=== PATIENT | female | born 1975 | race Caucasian/White ===

== ENCOUNTER → 2017-01-06 | Outpatient (REF) | payer OTHER ==
[~2017-01-06] MED LIST: ACET50TA PO; ADDE30CA PO; CIPR500T89 PO; DOCU10ELUD PO; FLAG500T PO; GLYBPOW PO; IBUP80TA PO; IRON325T3 PO; LABE300T PO; PERC5TAB PO; PRENTAB74 PO; TRAN200T PO; TYLE325T5 PO
== END ==
LOC: M SFHCLERA 21:57
PROVIDERS: ATTEND Physician Assistant
DX: N94.9 Unspecified condition associated with female genital organs and menstrual cycle (principal)

== ENCOUNTER → 2017-08-03 | Outpatient (REF) | payer OTHER ==
[~2017-08-03] MED LIST changes: +CIPR-249 PO; -CIPR500T89 PO
== END ==
LOC: M SFHCLERA 10:01
PROVIDERS: ATTEND Family Medicine
DX: Z53.8 Procedure and treatment not carried out for other reasons (principal)

== ENCOUNTER → 2017-09-25 | Outpatient (REF) | payer SELFPAY | LOC: M LAB REF 11:06 | PROVIDERS: ATTEND Dermatology | DX: D22.62 Melanocytic nevi of left upper limb, including shoulder (principal) ==

== ENCOUNTER → 2018-04-16 | Outpatient (REF) | payer BC | LOC: M SFHCLERA 11:02 | DX: L03.011 Cellulitis of right finger (principal) | CPT/HCPCS: 87186 ==

== ENCOUNTER → 2018-06-27 | Outpatient (REF) | payer BC ==
[2018-06-27 18:30] LABS: BASO # 0.1 10^3/uL (0.0-0.2); BASO % 0.5 % (0.0-1.0); EOS # 0.2 10^3/uL (0.0-0.50); HEMATOCRIT 42.8 % (36.0-47.0); HEMOGLOBIN 14.1 g/dl (12.0-15.5); IMMATURE GRANULOCYTE % 0.5 % (0-3.0); LYMPH # 1.3 10^3/uL (1.5-4.5); LYMPH % 10.9 % (24.0-44.0); MEAN CORPUSCULAR HEMOGLOBIN 26.8 pg (27.0-33.0); MEAN CORPUSCULAR HGB CONC 32.9 g/dl (32.0-36.5); MEAN CORPUSCULAR VOLUME 81.4 fl (80.0-96.0); MONO # 0.6 10^3/uL (0.0-0.8); MONO % 5.2 % (0.0-5.0); NEUTROPHILS # 9.7 10^3/uL (1.8-7.7); NEUTROPHILS % 80.9 % (36.0-66.0); PLATELET COUNT, AUTOMATED 307 10^3/uL (150-450); RED BLOOD COUNT 5.26 10^6/uL (4.00-5.40); RED CELL DISTRIBUTION WIDTH 13.5 % (11.5-14.5)
[2018-06-27 18:49] LABS: ESTIMATED AVERAGE GLUCOSE 103 MG/DL (60-110); HEMOGLOBIN A1c 5.2 %
[2018-06-27 18:50] LABS: MALB URINE SIEMENS 34.8 MG/L
[2018-06-27 19:01] LABS: ALBUMIN 4.3 GM/DL (3.2-5.2); ALBUMIN/GLOBULIN RATIO 1.23 (1.00-1.93); ALKALINE PHOSPHATASE 71 U/L (45-117); ALT/SGPT 24 U/L (12-78); ANION GAP 8 MEQ/L (8-16); AST/SGOT 12 U/L (7-37); BILIRUBIN,TOTAL 0.4 MG/DL (0.2-1.0); BLOOD UREA NITROGEN 12 MG/DL (7-18); CALCIUM LEVEL 9.6 MG/DL (8.5-10.1); CARBON DIOXIDE LEVEL 28 MEQ/L (21-32); CHLORIDE LEVEL 102 MEQ/L (98-107); CHOLESTEROL LEVEL 190 MG/DL (<200); CHOLESTEROL RISK RATIO 4.042 (<5); CREATININE FOR GFR 0.72 MG/DL (0.55-1.30); GLOMERULAR FILTRATION RATE > 60.0 (>58); GLUCOSE, FASTING 90 MG/DL (70-100); HDL CHOLESTEROL 47 MG/DL (>40); LDL CHOLESTEROL 92 MG/DL (<100); NON-HDL-C 143 MG/DL; POTASSIUM SERUM 4.3 MEQ/L (3.5-5.1); SODIUM LEVEL 138 MEQ/L (136-145); TOTAL PROTEIN 7.8 GM/DL (6.4-8.2); TRIGLYCERIDES LEVEL 255 MG/DL (<150)
[2018-06-27 22:36] LABS: MAU/CREAT RATIO 33.5 MCG/MG (0.0-30.0)
== END ==
LOC: M SFHCLERA 11:07
DX: I10 Essential (primary) hypertension (principal)
CPT/HCPCS: 84443

== ENCOUNTER → 2018-09-27 | Outpatient (REF) | payer BC ==
[2018-09-27 20:44] LABS: BASO # 0.1 10^3/uL (0.0-0.2); BASO % 0.6 % (0.0-1.0); EOS # 0.2 10^3/uL (0.0-0.50); EOS % 2.3 % (0.0-3.0); HEMATOCRIT 37.5 % (36.0-47.0); HEMOGLOBIN 12.4 g/dl (12.0-15.5); IMMATURE GRANULOCYTE % 0.5 % (0-3.0); LYMPH # 2.1 10^3/uL (1.5-4.5); LYMPH % 21.6 % (24.0-44.0); MEAN CORPUSCULAR HEMOGLOBIN 26.5 pg (27.0-33.0); MEAN CORPUSCULAR HGB CONC 33.1 g/dl (32.0-36.5); MEAN CORPUSCULAR VOLUME 80.1 fl (80.0-96.0); MONO # 0.5 10^3/uL (0.0-0.8); MONO % 5.1 % (0.0-5.0); NEUTROPHILS # 6.9 10^3/uL (1.8-7.7); NEUTROPHILS % 69.9 % (36.0-66.0); PLATELET COUNT, AUTOMATED 338 10^3/uL (150-450); RED BLOOD COUNT 4.68 10^6/uL (4.00-5.40); RED CELL DISTRIBUTION WIDTH 13.4 % (11.5-14.5); WHITE BLOOD COUNT 9.9 10^3/uL (4.0-10.0)
[2018-09-27 21:13] LABS: CREATININE, URINE 75.4 MG/DL; MALB URINE SIEMENS 29.9 MG/L; MAU/CREAT RATIO 39.6 MCG/MG (0.0-30.0)
== END ==
LOC: M SFHCLERA 17:16
DX: D72.829 Elevated white blood cell count, unspecified (principal)
CPT/HCPCS: 82043

== ENCOUNTER → 2018-11-02 | Outpatient (REF) | payer BC ==
[2018-11-06 15:26] LABS: HPV HYBRID CAPTURE II Negative (Negative)
== END ==
LOC: M SFHCLERA 14:50
PROVIDERS: ATTEND Family Medicine
DX: Z12.4 Encounter for screening for malignant neoplasm of cervix (principal); Z11.3 Encounter for screening for infections with a predominantly sexual mode of transmission
CPT/HCPCS: 87624; G0123

== ENCOUNTER → 2019-06-26 | Outpatient (REF) | payer BC ==
[~2019-06-26] MED LIST changes: -ACET50TA PO; -DOCU10ELUD PO; +DOCU5LIQ PO; +MAPA500T17 PO
[2019-06-26 17:18] LABS: BASO # 0.1 10^3/uL (0.0-0.2); BASO % 0.6 % (0.0-1.0); EOS # 0.2 10^3/uL (0.0-0.5); EOS % 2.4 % (0.0-3.0); HEMATOCRIT 37.1 % (36.0-47.0); HEMOGLOBIN 12.7 g/dl (12.0-15.5); LYMPH # 1.7 10^3/uL (1.5-5.0); MEAN CORPUSCULAR HEMOGLOBIN 27.5 pg (27.0-33.0); MEAN CORPUSCULAR HGB CONC 34.2 g/dl (32.0-36.5); MEAN CORPUSCULAR VOLUME 80.3 fl (80.0-96.0); MONO # 0.5 10^3/uL (0.0-0.8); MONO % 5.5 % (0.0-5.0); NEUTROPHILS # 6.5 10^3/uL (1.5-8.5); NEUTROPHILS % 71.8 % (36.0-66.0); PLATELET COUNT, AUTOMATED 311 10^3/uL (150-450); RED BLOOD COUNT 4.62 10^6/uL (4.00-5.40)
[2019-06-26 17:27] LABS: ALT/SGPT 22 U/L (12-78); BILIRUBIN,TOTAL 0.3 MG/DL (0.2-1.0); BLOOD UREA NITROGEN 11 MG/DL (7-18); CALCIUM LEVEL 9.2 MG/DL (8.5-10.1); CARBON DIOXIDE LEVEL 26 MEQ/L (21-32); CHLORIDE LEVEL 102 MEQ/L (98-107); CREATININE FOR GFR 0.79 MG/DL (0.55-1.30); GLOMERULAR FILTRATION RATE > 60.0 (>58); GLUCOSE, FASTING 104 MG/DL (70-100); POTASSIUM SERUM 3.5 MEQ/L (3.5-5.1); SODIUM LEVEL 139 MEQ/L (136-145)
[2019-06-26 18:31] LABS: HEMOGLOBIN A1c 5.6 %
== END ==
LOC: M SFHCLERA 11:31
PROVIDERS: ATTEND Family Medicine
DX: I10 Essential (primary) hypertension (principal)

== ENCOUNTER → 2019-07-26 | Outpatient (REF) | payer BC ==
[2019-07-29 16:12] LABS: CHLAMYDIA DNA AMPLIFICATION NEGATIVE (NEGATIVE); GC DNA AMPLIFICATION NEGATIVE (NEGATIVE)
== END ==
LOC: M SFHCLERA 17:55
PROVIDERS: ATTEND Nurse Practitioner Family
DX: N89.8 Other specified noninflammatory disorders of vagina (principal)

== ENCOUNTER 2019-08-19 18:54 | Emergency (ER) | payer BC ==
[~2019-08-19] VITALS: Ht 167.6 cm; Wt 90.9 kg
[2019-08-19] MEDS ORDERED: HYDR25TAB (19:01)
[2019-08-19] MEDS ORDERED: VALS1TAB66 (19:01)
[2019-08-19 21:18] LABS: BASO # 0.1 10^3/uL (0.0-0.2); BASO % 0.4 % (0.0-1.0); EOS # 0.3 10^3/uL (0.0-0.5); EOS % 2.2 % (0.0-3.0); HEMATOCRIT 38.1 % (36.0-47.0); HEMOGLOBIN 12.1 g/dl (12.0-15.5); LYMPH # 2.5 10^3/uL (1.5-5.0); LYMPH % 18.9 % (24.0-44.0); MEAN CORPUSCULAR HEMOGLOBIN 26.1 pg (27.0-33.0); MEAN CORPUSCULAR HGB CONC 31.8 g/dl (32.0-36.5); MEAN CORPUSCULAR VOLUME 82.3 fl (80.0-96.0); MONO # 0.8 10^3/uL (0.0-0.8); MONO % 6.2 % (0.0-5.0); NEUTROPHILS # 9.7 10^3/uL (1.5-8.5); NEUTROPHILS % 71.9 % (36.0-66.0); PLATELET COUNT, AUTOMATED 281 10^3/uL (150-450); RED BLOOD COUNT 4.63 10^6/uL (4.00-5.40); WHITE BLOOD COUNT 13.4 10^3/uL (4.0-10.0)
[2019-08-19] MEDS ORDERED: ISOVUE-370 76% 100ML VIAL (Q9967) As Ordered ONE (21:21)
[2019-08-19] MEDS ORDERED: MORPHINE 4 MG/ML 1ML VIAL/SYRINGE (J2270) IV ONE (21:30)
[2019-08-19] MEDS ORDERED: ONDANSETRON 4MG/2ML VIAL (J2405) IV ONE (21:30)
--- NOTE | 2019-08-19 23:37 | REPVR ---
PROCEDURE INFORMATION: Exam: CT Abdomen And Pelvis With Contrast Exam date and time: 08/19/2019 10:39 PM Clinical history: 44 years old, female; Abdominal pain; Localized; Left Lower Quadrant (LLQ); Additional Info: abd pain with HX of diverticulitis TECHNIQUE: Imaging protocol: Computed tomography of the abdomen and pelvis with intravenous contrast. Radiation optimization: All CT scans at this facility use at least one of these dose optimization techniques: automated exposure control; mA and/or kV adjustment per patient size (includes targeted exams where dose is matched to clinical indication); or iterative reconstruction. Contrast material: ISOVUE 370; Contrast volume: 100 ml; Contrast route: IV; COMPARISON: CT ABD PELVIS WITH CONTRAST 07/15/2016 8:21 PM FINDINGS: Liver: Normal. No mass. Gallbladder and bile ducts: Patient is status post cholecystectomy. CBD measures 8 mm in diameter. Pancreas: Normal. No ductal dilation. Spleen: Normal. No splenomegaly. Adrenals: Normal. No mass. Kidneys and ureters: Normal. No hydronephrosis. Stomach and bowel: Segmental thickening of the left colon. Pericolonic haziness associated with the thickened left colon. Moderate stool in the colon. No abnormal bowel dilatation. Diffuse mild colonic diverticulosis. Appendix: Appendix is normal. Intraperitoneal space: No free air. No free fluid. Vasculature: No abdominal aortic aneurysm. Mild atherosclerotic disease. Lymph nodes: Unremarkable. No enlarged lymph nodes. Bladder: Unremarkable as visualized. Reproductive: Multiple fibroids in the uterus. Bones/joints: Mild degenerative spine. Mild degenerative changes of the hips. No acute fracture. Soft tissues: Unremarkable. IMPRESSION: 1. Findings consistent with acute left colonic diverticulitis. 2. No bowel perforation. 3. Additional findings as described. Electronically signed by: Derrell Dumont On 08/19/2019 23:36:50 PM
[2019-08-19 23:48] VITALS: BP 116/57
[2019-08-19] MEDS ORDERED: FLAG500T PO (23:54)
[2019-08-19] MEDS ORDERED: CIPR-249 PO (23:54)
== END 2019-08-20 00:04 | disposition home or self-care (01) ==
LOC: M ED 18:54
DX: K57.32 Diverticulitis of large intestine without perforation or abscess without bleeding (principal); I10 Essential (primary) hypertension; M16.0 Bilateral primary osteoarthritis of hip; D25.9 Leiomyoma of uterus, unspecified; I70.209 Unspecified atherosclerosis of native arteries of extremities, unspecified extremity; Z85.71 Personal history of Hodgkin lymphoma; Z90.49 Acquired absence of other specified parts of digestive tract; Z79.899 Other long term (current) drug therapy
CPT/HCPCS: 36415; 74177; 80047; 81001; 84702; 85025; 96374; 96375; 99284; J2270; J2405; Q9967

== ENCOUNTER 2019-08-21 18:19 | Emergency (ER) | payer BC ==
[~2019-08-21] VITALS: Ht 167.6 cm; Wt 90.9 kg
[~2019-08-21 18:19] MED LIST changes: +HYDR25TAB; +VALS1TAB66
[2019-08-21 18:20] VITALS: BP 128/76
[2019-08-21] MEDS ORDERED: NS 1,000 ML IV ONE (19:45)
[2019-08-21] MEDS ORDERED: CIPROFLOXACIN 400 MG in IV 1 EA IV ONE (19:45)
[2019-08-21 20:02] LABS: BASO # 0.1 10^3/uL (0.0-0.2); BASO % 0.5 % (0.0-1.0); EOS # 0.3 10^3/uL (0.0-0.5); EOS % 2.5 % (0.0-3.0); HEMATOCRIT 38.7 % (36.0-47.0); HEMOGLOBIN 12.3 g/dl (12.0-15.5); LYMPH # 1.8 10^3/uL (1.5-5.0); LYMPH % 17.5 % (24.0-44.0); MEAN CORPUSCULAR HGB CONC 31.8 g/dl (32.0-36.5); MEAN CORPUSCULAR VOLUME 81.8 fl (80.0-96.0); MONO # 0.7 10^3/uL (0.0-0.8); NEUTROPHILS # 7.4 10^3/uL (1.5-8.5); PLATELET COUNT, AUTOMATED 291 10^3/uL (150-450); RED BLOOD COUNT 4.73 10^6/uL (4.00-5.40); WHITE BLOOD COUNT 10.2 10^3/uL (4.0-10.0)
[2019-08-21 20:14] LABS: BLOOD UREA NITROGEN 10 MG/DL (7-18); CALCIUM LEVEL 8.7 MG/DL (8.5-10.1); CARBON DIOXIDE LEVEL 31 MEQ/L (21-32); CHLORIDE LEVEL 99 MEQ/L (98-107); CREATININE FOR GFR 0.67 MG/DL (0.55-1.30); GLOMERULAR FILTRATION RATE > 60.0 (>58); GLUCOSE, FASTING 103 MG/DL (70-100); POTASSIUM SERUM 3.6 MEQ/L (3.5-5.1); SODIUM LEVEL 137 MEQ/L (136-145)
[2019-08-21] MEDS ORDERED: KETOROLAC 30 MG/ML VIAL (J1885) IV ONE (20:45)
[2019-08-21] MEDS ORDERED: metroNIDAZOLE (FLAGYL) 500 MG TAB PO ONE (21:15)
--- NOTE | 2019-08-22 08:32 | REP ---
Clinical: Diagnosed with acute diverticulitis. Technique: Upright view of the chest with supine and upright views of the abdomen and pelvis. Findings: Frontal upright view of the chest demonstrates no acute cardiopulmonary process or free air below the diaphragm to suspect pneumoperitoneum. Supine and upright views of the abdomen and pelvis demonstrate nonspecific bowel gas pattern without obstruction or perforation. No organomegaly. Evidence of prior cholecystectomy. No abnormal calcifications. Skeletal structures normal for age. Impression: Nonspecific bowel gas pattern. Electronically Signed by Todd Carlos MD 08/22/2019 08:24 A
== END 2019-08-21 21:30 | disposition home or self-care (01) ==
LOC: M ED 18:19
DX: K57.32 Diverticulitis of large intestine without perforation or abscess without bleeding (principal); R10.12 Left upper quadrant pain; Z79.899 Other long term (current) drug therapy
CPT/HCPCS: 36415; 74021; 80048; 83605; 85025; 86140; 96365; 96366; 96375; 99284; J0744; J1885

== ENCOUNTER → 2019-12-12 | Outpatient (REF) | payer BC, OTHER | LOC: M LAB REF 12:18 | PROVIDERS: ATTEND Dermatology | DX: L72.11 Pilar cyst (principal) ==

== ENCOUNTER → 2020-04-30 | Outpatient (CLI) | payer BC | LOC: M LABSMTC 13:47 | PROVIDERS: ATTEND Family Medicine | DX: Z11.59 Encounter for screening for other viral diseases (principal) | CPT/HCPCS: C9803; U0003 ==

== ENCOUNTER → 2020-09-16 | Outpatient (CLI) | payer BC, OTHER ==
[~2020-09-16] MED LIST changes: +ADDE20CA3 PO
== END ==
LOC: M LABSMTC 10:28
PROVIDERS: ATTEND Anesthesiology
DX: Z01.812 Encounter for preprocedural laboratory examination (principal); Z20.828 Contact with and (suspected) exposure to other viral communicable diseases

== ENCOUNTER 2020-09-21 08:58 | Day surgery (SDC) | payer BC ==
[~2020-09-21] VITALS: Ht 167.6 cm; Wt 94.8 kg
[~2020-09-21 08:58] MED LIST changes: +LIDOCAINE 2% 100MG/5ML SDV (FOR ANES.) As Ordered ONE; +NS 1,000 ML IV ONE; +propofoL 200 MG/20 ML VIAL As Ordered ONE
[2020-09-21] MEDS ORDERED: propofoL 200 MG/20 ML VIAL As Ordered ONE (10:24)
--- NOTE | 2020-09-21 10:39 | ROOR ---
Patient Name: Jennifer Tabor Procedure Date: 09/21/2020 9:57 AM Date of : 1975 Age: 45 Room: [facility] Gender: Female Note Status: Finalized Procedure: Colonoscopy Indications: Screening for colorectal malignant neoplasm Providers: Maynor Dover MD Referring MD: Lavell Padilla DO Requesting Provider: Medicines: Monitored Anesthesia Care Complications: No immediate complications. Procedure: Pre-Anesthesia Assessment: - Prior to the procedure, a History and Physical was performed, and patient medications and allergies were reviewed. The patient is competent. The risks and benefits of the procedure and the sedation options and risks were discussed with the patient. All questions were answered and informed consent was obtained. Patient identification and proposed procedure were verified by the physician, the nurse and the anesthesiologist in the procedure room. Mental Status Examination: alert and oriented. Airway Examination: normal oropharyngeal airway and neck mobility. Respiratory Examination: clear to auscultation. CV Examination: normal. Prophylactic Antibiotics: The patient does not require prophylactic antibiotics. Prior Anticoagulants: The patient has taken no previous anticoagulant or antiplatelet agents. ASA Grade Assessment: II - A patient with mild systemic disease. After reviewing the risks and benefits, the patient was deemed in satisfactory condition to undergo the procedure. The anesthesia plan was to use monitored anesthesia care (MAC). Immediately prior to administration of medications, the patient was re-assessed for adequacy to receive sedatives. The heart rate, respiratory rate, oxygen saturations, blood pressure, adequacy of pulmonary ventilation, and response to care were monitored throughout the procedure. The physical status of the patient was re-assessed after the procedure. The Colonoscope was introduced through the anus and advanced to the terminal ileum, with identification of the appendiceal orifice and IC valve. The colonoscopy was performed without difficulty. The patient tolerated the procedure well. The quality of the bowel preparation was good. The terminal ileum, ileocecal valve, appendiceal orifice, and rectum were photographed. Scope insertion time was 3 minutes. Scope withdrawal time was 9 minutes. The total duration of the procedure was 14 minutes. Findings: The perianal and digital rectal examinations were normal. The terminal ileum appeared normal. Three sessile polyps were found in the ascending colon. The polyps were 3 to 5 mm in size. These polyps were removed with a jumbo cold forceps. Resection and retrieval were complete. Verification of patient identification for the specimen was done by the physician and nurse using the patient's name, date and medical record number. Estimated blood loss was minimal. Multiple small and large-mouthed diverticula were found in the sigmoid colon. There was no evidence of diverticular bleeding. Non-bleeding external and internal hemorrhoids were found during retroflexion. The hemorrhoids were medium-sized. Impression: - The examined portion of the ileum was normal. - Three 3 to 5 mm polyps in the ascending colon, removed with a jumbo cold forceps. Resected and retrieved. - Moderate diverticulosis in the sigmoid colon. There was no evidence of diverticular bleeding. - Non-bleeding external and internal hemorrhoids. Recommendation: - Patient has a contact number available for emergencies. The signs and symptoms of potential delayed complications were discussed with the patient. Return to normal activities tomorrow. Written discharge instructions were provided to the patient. - High fiber diet. - Continue present medications. - Use fiber, for example Citrucel, Fibercon, Konsyl or Metamucil. - Await pathology results. - Repeat colonoscopy in 5 years for surveillance based on pathology results. - Telephone GI clinic for pathology results in 2 weeks. - Return to primary care physician. Procedure Code(s): --- Professional --- 40738, Colonoscopy, flexible; with biopsy, single or multiple Diagnosis Code(s): --- Professional --- Z12.11, Encounter for screening for malignant neoplasm of colon K64.8, Other hemorrhoids K63.5, Polyp of colon K57.30, Diverticulosis of large intestine without perforation or abscess without bleeding CPT copyright 2019 [employer]. All rights reserved. The codes documented in this report are preliminary and upon director summer sessions review may be revised to meet current compliance requirements. Maynor Dover MD Maynor Dover MD 09/21/2020 10:38:15 AM Electronically signed by Maynor Dover MD Number of Addenda: 0 Note Initiated On: 09/21/2020 9:57 AM Estimated Blood Loss: Estimated blood loss was minimal.
[2020-09-21 11:00] VITALS: BP 216/100
== END 2020-09-21 11:17 | disposition home or self-care (01) ==
LOC: M OPP 08:58
PROVIDERS: ATTEND Internal Medicine Gastroenterology
DX: Z12.11 Encounter for screening for malignant neoplasm of colon (principal); K63.5 Polyp of colon; K57.30 Diverticulosis of large intestine without perforation or abscess without bleeding; K64.8 Other hemorrhoids; I10 Essential (primary) hypertension; Z79.899 Other long term (current) drug therapy; Z85.71 Personal history of Hodgkin lymphoma

== ENCOUNTER → 2020-10-13 | Outpatient (REF) | payer BC ==
[~2020-10-13] MED LIST changes: -LIDOCAINE 2% 100MG/5ML SDV (FOR ANES.) As Ordered ONE; -NS 1,000 ML IV ONE; -propofoL 200 MG/20 ML VIAL As Ordered ONE
[2020-10-13 17:14] LABS: HCG, SERUM QUALITATIVE NEGATIVE (NEGATIVE)
[2020-10-13 17:18] LABS: BASO # 0.1 10^3/uL (0.0-0.2); BASO % 0.5 % (0.0-1.0); EOS # 0.2 10^3/uL (0.0-0.5); EOS % 1.9 % (0.0-3.0); HEMATOCRIT 37.7 % (36.0-47.0); HEMOGLOBIN 12.1 g/dl (12.0-15.5); LYMPH # 2.1 10^3/uL (1.5-5.0); LYMPH % 22.4 % (24.0-44.0); MEAN CORPUSCULAR HEMOGLOBIN 26.4 pg (27.0-33.0); MEAN CORPUSCULAR HGB CONC 32.1 g/dl (32.0-36.5); MEAN CORPUSCULAR VOLUME 82.1 fl (80.0-96.0); MONO # 0.7 10^3/uL (0.0-0.8); MONO % 6.9 % (0.0-5.0); NEUTROPHILS # 6.5 10^3/uL (1.5-8.5); NEUTROPHILS % 67.8 % (36.0-66.0); PLATELET COUNT, AUTOMATED 359 10^3/uL (150-450); RED BLOOD COUNT 4.59 10^6/uL (4.00-5.40); WHITE BLOOD COUNT 9.6 10^3/uL (4.0-10.0)
[2020-10-13 17:23] LABS: FOLLICLE STIMULATING HORMONE 5.5 mIU/mL; LUTEINIZING HORMONE 3.3 mIU/mL
== END ==
LOC: M SFHCLERA 14:56
PROVIDERS: ATTEND Family Medicine
DX: N93.9 Abnormal uterine and vaginal bleeding, unspecified (principal)

== ENCOUNTER → 2020-10-21 | Outpatient (CLI) | payer BC ==
--- NOTE | 2020-10-21 13:56 | REP ---
INDICATION: N93.9 AUB. COMPARISON: 04/13/2012. TECHNIQUE: Transabdominal and transvaginal scanning performed. FINDINGS: Uterine dimensions are 11.9 x 6.8 x 7.4 cm. Endometrial echo is 13 mm in AP dimension and centrally placed. The endometrium has a trilaminar appearance. The uterus is anteverted. The bladder measures 5.7 x 3.2 x 7.0. The right ovary has dimensions of 3.9 x 2.6 x 2.4 cm. Blood flow is seen in the right ovary with Doppler evaluation. The left ovary dimensions are 3.5 x 2.5 x 2.3 cm. Blood flow is seen in the left ovary with Doppler evaluation. There is no adnexal mass identified. No free fluid is seen in the cul-de-sac. A nabothian cysts in the cervix measures 1.7 x 1.1 x 1.5 cm. Multiple fibroids are present. In the lower uterine segment a fibroid measures 1.1 cm in maximum diameter, anteriorly there are 2 fibroids both measuring 1.3 cm in diameter, and there is a fundal fibroid 2.1 cm in diameter. There is a dominant follicle in the right ovary 2.2 cm in diameter. IMPRESSION: Uterine fibroids as above. No adnexal mass or free fluid. <Electronically signed by Florencio Lala > 10/21/20 [id number]
== END ==
LOC: M WHC 12:34
PROVIDERS: ATTEND Family Medicine
DX: N93.9 Abnormal uterine and vaginal bleeding, unspecified (principal); N88.8 Other specified noninflammatory disorders of cervix uteri

== ENCOUNTER → 2020-11-15 | Outpatient (CLI) | payer SELFPAY | LOC: M LABSMTC 08:14 | PROVIDERS: ATTEND Pediatrics | DX: Z20.822 Contact with and (suspected) exposure to COVID-19 (principal) ==

== ENCOUNTER 2021-02-03 18:32 | Emergency (ER) | payer BC, SELFPAY ==
[~2021-02-03] VITALS: Ht 167.6 cm; Wt 90.9 kg
[~2021-02-03 18:32] MED LIST changes: +HYDR-3490; -HYDR25TAB
[2021-02-03] MEDS ORDERED: CYCLOBENZAPRINE 10MG TABLET PO ONE (22:05)
[2021-02-03] MEDS ORDERED: KETOROLAC TROMETHAMINE 10 MG TAB PO ONE (22:05)
[2021-02-03] MEDS ORDERED: ONDANSETRON 4 MG ORAL DISINTEGRATING TAB PO ONE (22:05)
[2021-02-03] MEDS ORDERED: CYCL5TAB PO (23:21)
[2021-02-03 23:33] VITALS: BP 179/83
--- NOTE | 2021-02-04 13:05 | ECGEPIP ---
[facility] - ED Test Date: 2021-02-03 Pat Name: RAND GIMENEZ Department: Room: - Gender: Female Legal Service Specialist: YUNIER : 1975 Requested By: LI VYAS PA-C Order Number: [id number] Reading MD: Opal Lopez Measurements Intervals [place] Rate: 72 P: 44 WV: 176 QRS: 23 QRSD: 90 T: 37 QT: 410 QTc: 448 Interpretive Statements Normal sinus rhythm Cannot rule out Anterior infarct , age undetermined No prior Electronically Signed on 02-04-2021 13:05:14 EDT by Opal Lopez
== END 2021-02-03 23:34 | disposition home or self-care (01) ==
LOC: M ED 18:32
DX: G44.229 Chronic tension-type headache, not intractable (principal); E11.9 Type 2 diabetes mellitus without complications; I10 Essential (primary) hypertension; J45.909 Unspecified asthma, uncomplicated; Z79.899 Other long term (current) drug therapy; Z85.71 Personal history of Hodgkin lymphoma; Z82.49 Family history of ischemic heart disease and other diseases of the circulatory system; Z98.890 Other specified postprocedural states
CPT/HCPCS: 36415; 80047; 93005; 99284; Q0162

== ENCOUNTER → 2021-10-06 | Outpatient (CLI) | payer BC ==
[~2021-10-06] MED LIST changes: +CYCL5TAB PO
[2021-10-06 13:05] LABS: HEMOGLOBIN A1c 5.7 %
[2021-10-06 13:19] LABS: BLOOD UREA NITROGEN 13 MG/DL (7-18); CALCIUM LEVEL 9.4 MG/DL (8.5-10.1); CARBON DIOXIDE LEVEL 31 MEQ/L (21-32); CHLORIDE LEVEL 102 MEQ/L (98-107); CHOLESTEROL LEVEL 225 MG/DL (<200); CHOLESTEROL RISK RATIO 4.787 (<5); CREATININE FOR GFR 0.66 MG/DL (0.55-1.30); GLOMERULAR FILTRATION RATE > 60.0 (>58); GLUCOSE, FASTING 118 MG/DL (70-100); HDL CHOLESTEROL 47 MG/DL (>40); LDL CHOLESTEROL 150 MG/DL (<100); NON-HDL-C 178 MG/DL; POTASSIUM SERUM 3.9 MEQ/L (3.5-5.1); SODIUM LEVEL 137 MEQ/L (136-145); TRIGLYCERIDES LEVEL 139 MG/DL (<150)
== END ==
LOC: M LAB 12:08
PROVIDERS: ATTEND Family Medicine
DX: E66.9 Obesity, unspecified (principal)

== ENCOUNTER → 2021-11-11 | Outpatient (REF) | payer BC | LOC: M SFHCLERA 15:59 | PROVIDERS: ATTEND Family Medicine | DX: Z20.822 Contact with and (suspected) exposure to COVID-19 (principal); Z11.52 Encounter for screening for COVID-19 ==

== ENCOUNTER → 2022-06-30 | Outpatient (CLI) | payer BC | LOC: M WHC 13:07 | PROVIDERS: ATTEND Family Medicine | DX: Z12.31 Encounter for screening mammogram for malignant neoplasm of breast (principal) ==

== ENCOUNTER → 2022-11-25 | Outpatient (CLI) | payer BC ==
[2022-11-25 15:13] LABS: BASO % 0.3 % (0.0-1.0); EOS % 0.2 % (0.0-3.0); HEMATOCRIT 40.3 % (36.0-47.0); HEMOGLOBIN 13.2 g/dl (12.0-15.5); LYMPH # 1.2 10^3/uL (1.5-5.0); LYMPH % 8.1 % (24.0-44.0); MEAN CORPUSCULAR HEMOGLOBIN 26.6 pg (27.0-33.0); MEAN CORPUSCULAR HGB CONC 32.8 g/dl (32.0-36.5); MEAN CORPUSCULAR VOLUME 81.3 fl (80.0-96.0); MONO # 0.7 10^3/uL (0.0-0.8); NEUTROPHILS # 12.8 10^3/uL (1.5-8.5); NEUTROPHILS % 85.9 % (36.0-66.0); PLATELET COUNT, AUTOMATED 370 10^3/uL (150-450); RED BLOOD COUNT 4.96 10^6/uL (4.00-5.40); WHITE BLOOD COUNT 14.9 10^3/uL (4.0-10.0)
[2022-11-25 15:45] LABS: ALBUMIN 4.4 G/DL (3.2-5.2); ALKALINE PHOSPHATASE 73 U/L (46-116); ALT/SGPT 16 U/L (7.0-40); AST/SGOT 15 U/L (<34); BILIRUBIN,TOTAL 0.4 MG/DL (0.3-1.2); BLOOD UREA NITROGEN 13 MG/DL (9-23); CALCIUM LEVEL 10.2 MG/DL (8.5-10.1); CARBON DIOXIDE LEVEL 29 MMOL/L (20-31); CHLORIDE LEVEL 98 MMOL/L (98-107); CHOLESTEROL LEVEL 255 MG/DL (<200); CHOLESTEROL RISK RATIO 4.43 (<5); CREATININE FOR GFR 0.64 MG/DL (0.55-1.30); GLOMERULAR FILTRATION RATE > 60.0 (>58); GLUCOSE, FASTING 94 MG/DL (60-100); HDL CHOLESTEROL 57.5 MG/DL (>40); LDL CHOLESTEROL 174.9 MG/DL (<100); NON-HDL-C 198 MG/DL; POTASSIUM SERUM 3.3 MMOL/L (3.5-5.1); SODIUM LEVEL 138 MMOL/L (136-145); THYROID STIMULATING HORMONE 1.023 uIU/ML (0.55-4.78); TOTAL PROTEIN 7.8 G/DL (5.7-8.2); TRIGLYCERIDES LEVEL 113 MG/DL (<150)
[2022-11-25 15:47] LABS: HEMOGLOBIN A1c 5.8 % (4.0-6.0)
== END ==
LOC: M PLALAB 14:10
PROVIDERS: ATTEND Family Medicine
DX: E66.9 Obesity, unspecified (principal)

== ENCOUNTER → 2022-11-25 | Outpatient (CLI) | payer BC ==
[2022-11-28 15:08] LABS: ANTINUCLEAR ANTIBODIES DIRECT Negative (Negative)
== END ==
LOC: M PLALAB 14:07
PROVIDERS: ATTEND Orthopaedic Surgery
DX: M17.0 Bilateral primary osteoarthritis of knee (principal)

== ENCOUNTER → 2023-03-20 | Outpatient (CLI) | payer BC ==
[~2023-03-20] MED LIST changes: +BUSP10TA PO; -HYDR-3490; +HYDR-3490 PO; +PERC5TAB12 PO; -VALS1TAB66; +VALS1TAB66 PO
[2023-03-20 10:44] LABS: BLOOD UREA NITROGEN 10 MG/DL (9-23); CALCIUM LEVEL 8.6 MG/DL (8.5-10.1); CARBON DIOXIDE LEVEL 31 MMOL/L (20-31); CHLORIDE LEVEL 102 MMOL/L (98-107); CREATININE FOR GFR 0.68 MG/DL (0.55-1.30); GLOMERULAR FILTRATION RATE > 60.0 (>58); GLUCOSE, FASTING 181 MG/DL (60-100); POTASSIUM SERUM 3.2 MMOL/L (3.5-5.1); SODIUM LEVEL 140 MMOL/L (136-145)
== END ==
LOC: M EKG 09:30
PROVIDERS: ATTEND Anesthesiology
DX: Z01.818 Encounter for other preprocedural examination (principal)

== ENCOUNTER 2023-03-22 07:38 | Day surgery (SDC) | payer BC ==
[~2023-03-22] VITALS: Ht 167.6 cm; Wt 92.5 kg
[~2023-03-22 07:38] MED LIST changes: -PERC5TAB12 PO
[2023-03-22] MEDS ORDERED: LR 1,000 ML IV SCH ×2 (08:00→11:50)
[2023-03-22] MEDS ORDERED: PERC5TAB12 PO (08:12)
[2023-03-22] MEDS ORDERED: propofoL 200 MG/20 ML VIAL As Ordered ONE (08:16)
[2023-03-22] MEDS ORDERED: SUGAMMADEX SODIUM 500 MG/5 ML VIAL (BRIDION) As Ordered ONE (08:16)
[2023-03-22] MEDS ORDERED: KETOROLAC 60MG 2ML VIAL As Ordered ONE (08:16)
[2023-03-22] MEDS ORDERED: ONDANSETRON 4MG 2ML VIAL As Ordered ONE (08:17)
[2023-03-22] MEDS ORDERED: ROCURONIUM BROMIDE 50MG/5ML VIAL As Ordered ONE (08:17)
[2023-03-22] MEDS ORDERED: LIDOCAINE 2% 100MG/5ML SDV (FOR ANES.) As Ordered ONE (08:17)
[2023-03-22 08:29] LABS: HEMATOCRIT 35.8 % (36.0-47.0); HEMOGLOBIN 11.7 g/dl (12.0-15.5); MEAN CORPUSCULAR HEMOGLOBIN 26.4 pg (27.0-33.0); MEAN CORPUSCULAR HGB CONC 32.7 g/dl (32.0-36.5); MEAN CORPUSCULAR VOLUME 80.6 fl (80.0-96.0); PLATELET COUNT, AUTOMATED 317 10^3/uL (150-450); RED BLOOD COUNT 4.44 10^6/uL (4.00-5.40); WHITE BLOOD COUNT 8.2 10^3/uL (4.0-10.0)
[2023-03-22] MEDS ORDERED: ceFAZolin SOD 2 GM in IV 1 EA IV ONE (08:35)
[2023-03-22 08:43] LABS: BLOOD UREA NITROGEN 13 MG/DL (9-23); CALCIUM LEVEL 8.5 MG/DL (8.5-10.1); CARBON DIOXIDE LEVEL 30 MMOL/L (20-31); CHLORIDE LEVEL 102 MMOL/L (98-107); CREATININE FOR GFR 0.77 MG/DL (0.55-1.30); GLOMERULAR FILTRATION RATE > 60.0 (>58); GLUCOSE, FASTING 131 MG/DL (60-100); POTASSIUM SERUM 3.5 MMOL/L (3.5-5.1); SODIUM LEVEL 138 MMOL/L (136-145)
[2023-03-22] MEDS ORDERED: fentaNYL 250 MCG/5 ML INJECTION As Ordered ONE (09:51)
[2023-03-22] MEDS ORDERED: MIDAZOLAM INJ 2MG/2ML VIAL As Ordered ONE (09:51)
[2023-03-22] MEDS ORDERED: BUPIVACAINE/EPIN 0.25% 30ML VIAL As Ordered ONE (09:54)
[2023-03-22] MEDS ORDERED: FLUORESCEIN 10% (100MG/ML) 5ML VIAL As Ordered ONE (09:54)
[2023-03-22] MEDS ORDERED: fentaNYL 100 MCG/2 ML INJECTION As Ordered ONE (10:57)
[2023-03-22] MEDS ORDERED: ONDANSETRON 4MG 2ML VIAL IV PRN (11:50)
[2023-03-22] MEDS ORDERED: fentaNYL 100 MCG/2 ML INJECTION IV PRN (11:50)
[2023-03-22] MEDS ORDERED: HYDROMORPHONE HCL 0.5 MG/ 0.5 ML SYRINGE IV PRN (11:50)
[2023-03-22] MEDS ORDERED: oxyCODONE 5MG TAB PO PRN (11:50)
[2023-03-22 13:26] VITALS: BP 135/78; TEMP 97.2; O2SAT 97
== END 2023-03-22 14:20 | disposition home or self-care (01) ==
LOC: M SDC 07:38
PROVIDERS: ATTEND Obstetrics & Gynecology
DX: N92.1 Excessive and frequent menstruation with irregular cycle (principal); D25.9 Leiomyoma of uterus, unspecified; N85.2 Hypertrophy of uterus; E66.9 Obesity, unspecified; I10 Essential (primary) hypertension; E78.5 Hyperlipidemia, unspecified; Z92.21 Personal history of antineoplastic chemotherapy; Z85.71 Personal history of Hodgkin lymphoma; Z79.899 Other long term (current) drug therapy; J45.909 Unspecified asthma, uncomplicated; K57.92 Diverticulitis of intestine, part unspecified, without perforation or abscess without bleeding; F41.9 Anxiety disorder, unspecified
CPT/HCPCS: 36415; 58571; 80048; 81025; 85027; 86850; 86900; 86901; 88307; J1100; J1170; J1885; J2250; J2405; J3010; S0020; S2900

== ENCOUNTER 2023-03-25 16:15 | Emergency (ER) | payer BC ==
[~2023-03-25] VITALS: Ht 167.6 cm; Wt 93.5 kg
[2023-03-25 16:15] VITALS: BP 153/81; TEMP 97.8; O2SAT 100
[~2023-03-25 16:15] MED LIST changes: +PERC5TAB12 PO
== END 2023-03-25 21:15 | disposition expired ==
LOC: M ED 16:15
DX: I46.9 Cardiac arrest, cause unspecified (principal); I10 Essential (primary) hypertension; F90.9 Attention-deficit hyperactivity disorder, unspecified type; C81.90 Hodgkin lymphoma, unspecified, unspecified site; Z79.84 Long term (current) use of oral hypoglycemic drugs; Z79.899 Other long term (current) drug therapy